=== PATIENT | female | born 2000 | race African-American/Black ===

== ENCOUNTER 2022-08-03 17:24 | Emergency (ER) | payer BC, OTHER | END 2022-08-03 21:30 | disposition home or self-care (01) | LOC: ERS 17:24 | DX: R07.89 Other chest pain (principal); R05.9 Cough, unspecified; G40.909 Epilepsy, unspecified, not intractable, without status epilepticus; F17.290 Nicotine dependence, other tobacco product, uncomplicated | CPT/HCPCS: 71045; 93005 ==